=== PATIENT | male | born 1945 | race Caucasian/White ===

== ENCOUNTER → 2016-12-13 | Outpatient (CLI) | payer OTHER ==
--- NOTE | 2016-12-13 10:01 | MR ---
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 Technique: Sagittal and axial T1 and T2 and sagittal STIR MR sequences of the lumbar spine without co ntrast. Axial imaging from T12-S1. Findings: Lumbar vertebral bodies are of normal height without compression fractures. Conus medulla ris appears normal and ends at L2. Sagittal images at T10-T11 and T11-T12 demonstrate mild degenerative disk disease without disk hernia tions or stenosis. T12-L1: Mild bilateral facet arthropathy without disk herniation or stenosis. L1-L2: Mild bilateral facet arthropathy without disk herniation or stenosis. L2-L3: Mild bilateral facet arthropathy without disk herniation or stenosis. L3-L4: Moderate bilateral facet arthropathy and mild disk bulge resulting in mild central canal steno sis and mild bilateral neural foraminal stenosis. L4-L5: Severe bilateral facet arthropathy, minimal disk bulge and retrolisthesis resulting in mild ce ntral canal stenosis and mild to moderate bilateral neural foraminal stenosis, right worse than left. L5-S1: Severe degenerative disk disease, severe loss of disk height, severe bilateral facet arthropat hy, degenerative grade 1 anterolisthesis of 6 mm resulting in severe central canal stenosis and moder ate to severe bilateral neural foraminal stenosis, right worse than left. S1-S2: Small rudimentary disk space. Impression: 1. L5-S1: Severe central canal stenosis and moderate to severe bilateral neural foraminal stenosis se condary to degenerative grade 1 anterolisthesis, severe bilateral facet arthropathy and severe degene rative disk disease. 2. Please see above findings at specific disk levels.
== END ==
LOC: FIMAGING 06:58
PROVIDERS: ATTEND Family Medicine
DX: M51.06 Intervertebral disc disorders with myelopathy, lumbar region (principal); M43.16 Spondylolisthesis, lumbar region; M51.36 Other intervertebral disc degeneration, lumbar region